=== PATIENT | female | born 1980 | race Caucasian/White ===

== ENCOUNTER → 2016-09-11 | Outpatient (CLI) | payer OTHER ==
[~2016-09-11] MED LIST: ADDERALL 10 MG10 MG PO; ADVIL; AMBIEN 5 MG TABL5 M1 PO; BIRTH CONTROL; CRYSELLE1 EACH PO; FISH OIL 1,0001 EAC5 PO; FLEXERIL PO; HYDROCODON-ACE1 EAC5 PO; HYDROCODON-ACE1 EAC8 PO; HYDROCODONE-AP1 EA11 PO; HYDROCODONE-AP1 EAC6 PO; MELATONIN1 MG PO; MULTIVITAMINS; NABUMETONE 500500 M1 PO; NEURONTIN 300300 M1 PO; NOHOMEMEDICATIONS; NORCO 5-325 TA1 EACH PO; NUVARING VAGIN1 EACH VG; OMEPRAZOLE20 MG PO; PERCOCET 10-321 EACH PO; PREDNISONE50 MG PO; TYLENOL EXTRA STRENG; XANAX 0.5 MG0.5 MG PO; ZOLPIDEM TARTRA10 MG PO
--- NOTE | ~2016-09-11 | 24HR ---
[address] [address] [place] [address] 24 HR ELECTROCARDIOGRAM REPORT Name: ARLYN DOUGHERTY Room #: REG CL [facility]#: [id number] Admission: 09/11/16 Attend Phys: Mor Mahan MD Discharge: Date of : 84 Date of Service: 09/11/16 1124 Report #: [id number] THIS REPORT FOR: //name// [facility] Test Date: 2016-09-11 Test Time: 11:24:00 Pat Name: ARLYN DOUGHERTY Department: Room: Gender: F [employer] Assistant: : 1980 Requested By: Mor Mahan Order Number: [id number] Srinath HAYDEN: Interpretive Statements [email or web address] [email or web address] 23 23 Epiphany EpiphMD linda /EPI
== END ==
LOC: CV 10:58
DX: R55 Syncope and collapse (principal)